=== PATIENT | male | born 1970 | race Hispanic/Latino ===

== ENCOUNTER 2020-04-24 11:28 | Emergency (ER) | payer BC ==
[2020-04-24] MEDS ORDERED: Ketorolac Tromethamine 30 MG/ML VIAL ONE (13:43)
--- NOTE | 2020-04-24 14:10 | RAD ---
LEFT KNEE 4 VIEWS: Date: 04/24/2020 HISTORY: Left knee pain. FINDINGS/IMPRESSION: No acute fracture, dislocation, or bony destruction is seen. A joint effusion is present. POS: [facility]
== END 2020-04-24 15:04 | disposition home or self-care (01) ==
LOC: ERS 11:28
DX: M70.962 Unspecified soft tissue disorder related to use, overuse and pressure, left lower leg (principal); M70.961 Unspecified soft tissue disorder related to use, overuse and pressure, right lower leg; I10 Essential (primary) hypertension; K21.9 Gastro-esophageal reflux disease without esophagitis; Z87.891 Personal history of nicotine dependence; Z79.899 Other long term (current) drug therapy
CPT/HCPCS: 96372; J1885